=== PATIENT | female | born 2000 | race American Indian/Alaskan Native ===

== ENCOUNTER 2021-02-07 08:31 | Emergency (ER) | payer SELFPAY ==
[2021-02-07 08:48] VITALS: BP 126/76
--- NOTE | 2021-02-07 10:58 | XRay Report ---
CHEST 2 VIEWS 1038 INDICATION / CLINICAL INFORMATION: cough, chest tightness COMPARISON: None available. FINDINGS: SUPPORT DEVICES: None. HEART / MEDIASTINUM: No significant abnormality. LUNGS / PLEURA: Calcified granuloma is seen in the right upper lobe. No definite pulmonary infiltrate s are seen. No pleural effusions are noted. No pneumothorax. ADDITIONAL FINDINGS: No significant additional findings. IMPRESSION: No significant acute abnormality Signer Name: Eben Rodriguez MD Signed: 02/07/2021 10:54 AM Workstation Name: [id number]
--- NOTE | 2021-02-07 11:04 | Emergency Department Report ---
- General Chief Complaint: Upper Respiratory Infection Stated Complaint: NOSEBLEED/HEMOPTYSIS/FATIGUE Time Seen by Provider: 02/07/21 10:25 Source: patient Mode of arrival: Wheelchair Limitations: No Limitations - History of Present Illness Initial Comments: Patient is a 20-year-old female presents emergency room complaints of a cough that began a week ago. Patient states that today she believes she had a panic attack at work. She states that she got overheated and went outside and had a coughing spell. States that then she had a brief nosebleed and after the nosebleed she would notice a small amount of blood streaks in her sputum after the nosebleed. She has not been having hemoptysis during this last week. She states that she was feeling chest tightness during the episode but it has completely resolved. She denies any shortness of breath or pleuritic chest pain. She states that her father also has cold symptoms. she has not been tested for COVID-19. she has not received the COVID-19 vaccine. No past medical history. No allergies to medicines. - Related Data Previous Rx's Medication Instructions Recorded Last Taken Type Benzonatate [Tessalon Perles] 100 mg PO Q8HR PRN #12 capsule 02/07/21 Unknown Rx guaiFENesin ER [Mucinex ER] 600 mg PO BID #14 tablet.er 02/07/21 Unknown Rx Allergies Allergy/AdvReac Type Severity Reaction Status Date / Time pollen extracts Allergy Unknown Verified 02/07/21 08:44 ED Review of Systems ROS: Stated complaint: NOSEBLEED/HEMOPTYSIS/FATIGUE Other details as noted in HPI Comment: All other systems reviewed and negative ED Past Medical Hx - Past Medical History Previous Medical History?: No - Surgical History Past Surgical History?: No - Social History Smoking Status: Never Smoker Substance Use Type: None - Medications Home Medications: Home Medications Medication Instructions Recorded Confirmed Last Taken Type Benzonatate [Tessalon Perles] 100 mg PO Q8HR PRN #12 capsule 02/07/21 Unknown Rx guaiFENesin ER [Mucinex ER] 600 mg PO BID #14 tablet.er 02/07/21 Unknown Rx ED Physical Exam - General Limitations: No Limitations General appearance: alert, in no apparent distress - Head Head exam: Present: atraumatic, normocephalic - Eye Eye exam: Present: normal appearance - ENT ENT exam: Present: mucous membranes moist - Respiratory Respiratory exam: Present: normal lung sounds bilaterally. Absent: respiratory distress, wheezes, rales, rhonchi, stridor, chest wall tenderness, accessory muscle use, decreased breath sounds, prolonged expiratory - Cardiovascular Cardiovascular Exam: Present: regular rate, normal rhythm, normal heart sounds. Absent: systolic murmur, diastolic murmur, rubs, gallop - Neurological Exam Neurological exam: Present: alert, oriented X3 - Psychiatric Psychiatric exam: Present: normal affect, normal mood - Skin Skin exam: Present: warm, dry, intact ED Course Vital Signs 02/07/21 08:47 Temperature 99.3 F Pulse Rate 95 H Respiratory 18 Rate Blood Pressure 126/76 O2 Sat by Pulse 97 Oximetry ED Medical Decision Making - Radiology Data Radiology results: report reviewed Ordering Physician: BRANDI MORALES Date of Service: 02/07/21 Procedure(s): XR chest routine 2V Accession Number(s): [id number] cc: BRANDI MORALES Fluoro Time In Minutes: CHEST 2 VIEWS 1038 INDICATION / CLINICAL INFORMATION: cough, chest tightness COMPARISON: None available. FINDINGS: SUPPORT DEVICES: None. HEART / MEDIASTINUM: No significant abnormality. LUNGS / PLEURA: Calcified granuloma is seen in the right upper lobe. No definite pulmonary infiltrates are seen. No pleural effusions are noted. No pneumothorax. ADDITIONAL FINDINGS: No significant additional findings. IMPRESSION: No significant acute abnormality Signer Name: Eben Rodriguez MD Signed: 02/07/2021 10:54 AM Workstation Name: [id number] Transcribed By: GJ Dictated By: Eben Rodriguez MD Electronically Authenticated By: Eben Rodriguez MD Signed Date/Time: 02/07/21 1054 DD/ 1053 TD/TT: Print - Medical Decision Making Patient is a 20-year-old female presents emergency room complaints of a cough that began a week ago. Patient states that today she believes she had a panic attack at work. She states that she got overheated and went outside and had a coughing spell. States that then she had a brief nosebleed and after the nosebleed she would notice a small amount of blood streaks in her sputum after the nosebleed. She has not been having hemoptysis during this last week. She states that she was feeling chest tightness during the episode but it has completely resolved. She denies any shortness of breath or pleuritic chest pain. She states that her father also has cold symptoms. she has not been tested for COVID-19. she has not received the COVID-19 vaccine. No past medical history. No allergies to medicines. Vitals are normal. On exam breath sounds are clear bilaterally, no wheezing, no rales, no rhonchi, no respiratory distress, no accessory muscle use, no pleuritic pain. CXR: IMPRESSION: No significant acute abnormality. Symptoms and examination are most consistent with URI. She has no clinical signs of bacterial pneumonia or bacterial bronchitis. She is PERC criteria negative for PE, PE unlikely. Discussed very strict return precautions in detail with patient. Advised patient Please take medication as prescribed. Please increase your fluid intake over the next several days. May take Tylenol as needed for fever or body aches. Follow-up with a primary care doctor for reexamination. Return to emergency room immediately for any new or worsening symptoms including but not limited to difficulty breathing, shortness of breath, severe chest pain, unable to tolerate by mouth intake, etc. Please self quarantine for 10 days from the onset of your symptoms. Please do not go out in public. If you are around others at home p lease wear a mask. If you need to cough or sneeze please do so in a napkin and immediately throw it away and immediately wash your hands. Wash your hands frequently. Wipe everything down. Recommend for you to get COVID-19 testing, may have this done at primary care doctor, health department, [facility], etc. recommend for you to get a pulse oximetry meter [id number] and if your oxygen saturation is 93% or lower please report to the emergency room. Critical care attestation.: If time is entered above; I have spent that time in minutes in the direct care of this critically ill patient, excluding procedure time. ED Disposition Clinical Impression: URI (upper respiratory infection) Qualifiers: URI type: unspecified URI Qualified Code(s): J06.9 - Acute upper respiratory infection, unspecified Disposition: DC- TO HOME OR SELFCARE Is pt being admited?: No Does the pt Need Aspirin: No Condition: Stable Instructions: Upper Respiratory Infection, Adult Additional Instructions: Please take medication as prescribed. Please increase your fluid intake over the next several days. May take Tylenol as needed for fever or body aches. Follow-up with a primary care doctor for reexamination. Return to emergency room immediately for any new or worsening symptoms including but not limited to difficulty breathing, shortness of breath, severe chest pain, unable to tolerate by mouth intake, etc. Please self quarantine for 10 days from the onset of your symptoms. Please do not go out in public. If you are around others at home please wear a mask. If you need to cough or sneeze please do so in a napkin and immediately throw it away and immediately wash your hands. Wash your hands frequently. Wipe everything down. Recommend for you to get COVID-19 testing, may have this done at primary care doctor, health department, [facility], etc. recommend for you to get a pulse oximetry meter [id number] and if your oxygen saturation is 93% or lower please report to the emergency room. Prescriptions: guaiFENesin ER [Mucinex ER] 600 mg PO BID #14 tablet.er Benzonatate [Tessalon Perles] 100 mg PO Q8HR PRN #12 capsule PRN Reason: cough Referrals: PRIMARY CAREMD [Primary Care Provider] - 2-3 Days ANDREW MAURICIO MD [Staff Physician] - 2-3 Days [facility] [Provider Group] - 2-3 Days Time of Disposition: 11:02 Print Language: UKRAINIAN
== END 2021-02-07 11:08 | disposition home or self-care (01) ==
LOC: ED 08:31
DX: J06.9 Acute upper respiratory infection, unspecified (principal); F41.0 Panic disorder [episodic paroxysmal anxiety]; R04.0 Epistaxis
CPT/HCPCS: 71046; 99283